=== PATIENT | female | born 1985 | race Caucasian/White ===

== ENCOUNTER → 2016-11-01 | Outpatient (CLI) | payer SELFPAY | LOC: RAD 13:38 | DX: M79.605 Pain in left leg (principal) ==

== ENCOUNTER → 2020-10-27 | Outpatient (CLI) | payer BC ==
[~2020-10-27] MED LIST: ADVIL 200MG TA200 MG PO; CEFDINIR300 MG PO; PROTONIX TR40 M1 PO; TOPCARE OMEPRAZ20 MG PO; ZOFRAN ODT4 MG PO
== END ==
LOC: LAB 14:33
DX: Z84.81 Family history of carrier of genetic disease (principal)

== ENCOUNTER 2020-12-15 15:05 | Inpatient (IN) | payer BC ==
[~2020-12-15] VITALS: Ht 165.1 cm; Wt 68.9 kg
[2020-12-15 15:15] VITALS: BP 115/80
[2020-12-15] MEDS ORDERED: TOPCARE OMEPRAZ20 MG PO (15:16)
[2020-12-15] MEDS ORDERED: ADVIL 200MG TA200 MG PO (15:17)
[2020-12-15 17:48] VITALS: BP 106/68
[2020-12-15 18:40] LABS: URINE APPEARANCE HAZY; URINE BILIRUBIN NEGATIVE (NEGATIVE); URINE BLOOD TRACE (NEGATIVE); URINE COLOR YELLOW; URINE GLUCOSE NEGATIVE (NEGATIVE); URINE KETONE NEGATIVE (NEGATIVE); URINE LEUKOCYTE ESTERASE 1+ (NEGATIVE); URINE MUCUS PRESENT (NOT PRESENT); URINE NITRATE POSITIVE (NEGATIVE); URINE PROTEIN(semi-quant) TRACE mg/dL (NEGATIVE); URINE UROBILINOGEN NORMAL (NORMAL)
[2020-12-15 21:48] VITALS: BP 105/71
[2020-12-16 02:01] VITALS: BP 111/68
[2020-12-16 06:26] VITALS: BP 107/73
[2020-12-16 07:11] LABS: EOS # 0.19 (0.04-0.40); HEMATOCRIT 31.6 % (37.0-47.0); HEMOGLOBIN 9.6 g/dL (12.5-16.0); LYMPH# 1.67 (1.50-4.00); MEAN CELL VOLUME 90 fl (78-100); MEAN CORPUSCULAR HEMOGLOBIN 27 pg (27-31); MEAN CORPUSCULAR HGB CONC 30 g/dL (33-37); MEAN PLATELET VOLUME 9.4 fl (7.4-10.4); MONO # 0.96 (0.20-0.80); NEU # 6.73 (1.40-6.50); PLATELET COUNT 316 K/mm3 (130-400); RED BLOOD COUNT 3.51 M/mm3 (4.10-5.30); RED CELL DISTRIBUTION WIDTH 16.1 % (11.5-14.5); WHITE BLOOD COUNT 9.6 K/mm3 (4.8-10.8)
[2020-12-16 07:34] LABS: TOTAL PROTEIN 6.3 g/dL (6.4-8.3)
[2020-12-16 07:36] LABS: TOTAL BILIRUBIN 0.4 mg/dL (0.2-1.2)
[2020-12-16 07:45] LABS: ALBUMIN 2.8 g/dL (3.5-5.0); POTASSIUM 3.5 mmol/L (3.5-5.1)
[2020-12-16 09:58] VITALS: BP 106/65
[2020-12-16 13:56] VITALS: BP 128/83
[2020-12-16 16:47] LABS: HEMATOCRIT 31.7 % (37.0-47.0); HEMOGLOBIN 9.4 g/dL (12.5-16.0)
[2020-12-16 17:19] VITALS: BP 103/72
[2020-12-16 22:39] VITALS: BP 104/60
[2020-12-17 02:08] VITALS: BP 96/60
[2020-12-17 06:08] VITALS: BP 117/73
[2020-12-17 08:27] LABS: BASO # 0.01 (0.02-0.10); EOS # 0.14 (0.04-0.40); EOS % 1.6 % (1.0-5.0); HEMATOCRIT 32.5 % (37.0-47.0); HEMOGLOBIN 9.5 g/dL (12.5-16.0); MEAN CELL VOLUME 93 fl (78-100); MEAN CORPUSCULAR HEMOGLOBIN 27 pg (27-31); MEAN CORPUSCULAR HGB CONC 29 g/dL (33-37); MEAN PLATELET VOLUME 9.3 fl (7.4-10.4); MONO # 0.75 (0.20-0.80); NEU # 6.12 (1.40-6.50); PLATELET COUNT 315 K/mm3 (130-400); RED BLOOD COUNT 3.51 M/mm3 (4.10-5.30); RED CELL DISTRIBUTION WIDTH 16.4 % (11.5-14.5); WHITE BLOOD COUNT 8.5 K/mm3 (4.8-10.8)
[2020-12-17 08:47] LABS: ALBUMIN 2.8 g/dL (3.5-5.0); POTASSIUM 4.3 mmol/L (3.5-5.1)
[2020-12-17 08:48] LABS: CALCIUM 8.9 mg/dL (8.3-10.5)
[2020-12-17 08:50] LABS: TOTAL PROTEIN 6.3 g/dL (6.4-8.3)
[2020-12-17 08:51] LABS: TOTAL BILIRUBIN 0.4 mg/dL (0.2-1.2)
[2020-12-17 09:09] LABS: PARTIAL THROMBOPLASTIN TIME 30.1 SECONDS (21.0-32.0); PROTHROMBIN TIME 13.2 SECONDS (9.0-12.0)
[2020-12-17] MEDS ORDERED: PROTONIX TR40 M1 PO (09:33)
[2020-12-17] MEDS ORDERED: ZOFRAN ODT4 MG PO (09:33)
[2020-12-17 09:37] VITALS: BP 103/70
[2020-12-17] MEDS ORDERED: CEFDINIR300 MG PO (09:44)
== END 2020-12-17 12:20 | disposition home or self-care (01) | DRG 378 ==
LOC: MED/SURG 15:05
PROVIDERS: Physician Assistant; ADMIT Internal Medicine
PROC: 0DB98ZX Excision of Duodenum, Via Natural or Artificial Opening Endoscopic, Diagnostic (ICD-10-PCS; principal; 2020-12-17)
PROC: 0DB78ZX Excision of Stomach, Pylorus, Via Natural or Artificial Opening Endoscopic, Diagnostic (ICD-10-PCS; 2020-12-17)
PROC: 0DB38ZX Excision of Lower Esophagus, Via Natural or Artificial Opening Endoscopic, Diagnostic (ICD-10-PCS; 2020-12-17)
DX: K29.71 Gastritis, unspecified, with bleeding (principal); N39.0 Urinary tract infection, site not specified; K58.9 Irritable bowel syndrome, unspecified; K21.9 Gastro-esophageal reflux disease without esophagitis; D64.9 Anemia, unspecified; F41.1 Generalized anxiety disorder; F32.9 Major depressive disorder, single episode, unspecified; D72.829 Elevated white blood cell count, unspecified; Z20.822 Contact with and (suspected) exposure to COVID-19; F10.20 Alcohol dependence, uncomplicated; F17.210 Nicotine dependence, cigarettes, uncomplicated; Z90.49 Acquired absence of other specified parts of digestive tract; Z88.5 Allergy status to narcotic agent
CPT/HCPCS: 00731; C9113; J0696; J1885; J2060; J2405; J2704; J7030; J7120; J7121

== ENCOUNTER → 2022-03-01 | Outpatient (CLI) | payer BC ==
[2022-03-01 11:27] LABS: BASO # 0.01 K/mm3 (0.02-0.10); EOS # 0.22 K/mm3 (0.04-0.40); EOS % 3.2 % (1.0-5.0); HEMATOCRIT 26.8 % (37.0-47.0); HEMOGLOBIN 7.7 g/dL (12.5-16.0); LYMPH# 0.95 K/mm3 (1.50-4.00); MEAN CELL VOLUME 78 fl (78-100); MEAN CORPUSCULAR HEMOGLOBIN 23 pg (27-31); MEAN CORPUSCULAR HGB CONC 29 g/dL (33-37); MEAN PLATELET VOLUME 9.8 fl (7.4-10.4); MONO # 0.64 K/mm3 (0.20-0.80); NEU # 5.13 K/mm3 (1.40-6.50); PLATELET COUNT 191 K/mm3 (130-400); RED BLOOD COUNT 3.42 M/mm3 (4.10-5.30); RED CELL DISTRIBUTION WIDTH 15.2 % (11.5-14.5)
[2022-03-01 11:35] LABS: ALBUMIN 3.9 g/dL (3.5-5.0); POTASSIUM 4.2 mmol/L (3.5-5.1)
[2022-03-01 11:36] LABS: CALCIUM 9.7 mg/dL (8.3-10.5)
[2022-03-01 11:37] LABS: TOTAL PROTEIN 7.7 g/dL (6.4-8.3)
[2022-03-01 11:39] LABS: TOTAL BILIRUBIN 0.6 mg/dL (0.2-1.2)
[2022-03-01 12:11] LABS: PARTIAL THROMBOPLASTIN TIME 32.5 SECONDS (21.0-32.0); PROTHROMBIN TIME 13.7 SECONDS (9.0-12.0)
== END ==
LOC: LAB 10:59
PROVIDERS: Internal Medicine
DX: K70.31 Alcoholic cirrhosis of liver with ascites (principal); D50.9 Iron deficiency anemia, unspecified; D68.8 Other specified coagulation defects

== ENCOUNTER 2022-03-21 08:51 | Outpatient (RCR) | payer BC | END 2022-04-13 | disposition home or self-care (01) | LOC: PT | DX: M25.511 Pain in right shoulder (principal) | CPT/HCPCS: G0283-GP ==

== ENCOUNTER → 2022-04-19 | Outpatient (CLI) | payer BC | LOC: RAD 10:02 | DX: K70.31 Alcoholic cirrhosis of liver with ascites (principal) ==

== ENCOUNTER → 2022-07-07 | Outpatient (CLI) | payer BC ==
[~2022-07-07] MED LIST changes: +ATIVAN0.5 MG PO; +BENTYL 20MG20 MG/TAB; +POTASSIUM99 M5 PO
[2022-07-07 11:12] LABS: BASO # 0.01 K/mm3 (0.02-0.10); EOS # 0.11 K/mm3 (0.04-0.40); EOS % 1.1 % (1.0-5.0); HEMATOCRIT 40.5 % (37.0-47.0); HEMOGLOBIN 13.2 g/dL (12.5-16.0); LYMPH# 1.21 K/mm3 (1.50-4.00); MEAN CELL VOLUME 84 fl (78-100); MEAN CORPUSCULAR HEMOGLOBIN 27 pg (27-31); MEAN CORPUSCULAR HGB CONC 33 g/dL (33-37); MEAN PLATELET VOLUME 8.7 fl (7.4-10.4); MONO # 0.66 K/mm3 (0.20-0.80); NEU # 8.19 K/mm3 (1.40-6.50); PLATELET COUNT 170 K/mm3 (130-400); RED BLOOD COUNT 4.82 M/mm3 (4.10-5.30); RED CELL DISTRIBUTION WIDTH 15.8 % (11.5-14.5); WHITE BLOOD COUNT 10.2 K/mm3 (4.8-10.8)
[2022-07-07 11:13] LABS: ALBUMIN 4.2 g/dL (3.5-5.0); POTASSIUM 4.5 mmol/L (3.5-5.1)
[2022-07-07 11:16] LABS: TOTAL PROTEIN 7.4 g/dL (6.4-8.3)
[2022-07-07 11:18] LABS: TOTAL BILIRUBIN 0.8 mg/dL (0.2-1.2)
[2022-07-07 11:23] LABS: MAGNESIUM 2.15 mg/dL (1.60-2.60)
[2022-07-07 11:28] LABS: PARTIAL THROMBOPLASTIN TIME 31.6 SECONDS (21.0-32.0)
== END ==
LOC: LAB 10:51
PROVIDERS: Internal Medicine
DX: K90.9 Intestinal malabsorption, unspecified (principal); D68.8 Other specified coagulation defects; K70.31 Alcoholic cirrhosis of liver with ascites; D50.9 Iron deficiency anemia, unspecified